=== PATIENT | female | born 1985 | race Caucasian/White ===

== ENCOUNTER 2021-03-05 02:09 | Emergency (ER) | payer OTHER ==
[2021-03-05 02:42] LABS: BASOPHILS % (AUTO) 0.4 %; EOSINOPHILS # (AUTO) 0.1 10^3/uL (0.0-0.7); EOSINOPHILS % (AUTO) 0.7 %; HCT - HEMATOCRIT 39.6 % (37.0-47.0); HGB - HEMOGLOBIN 13.8 g/dL (12.0-16.0); LYMPHOCYTES # (AUTO) 2.9 10^3/uL (1.5-3.5); LYMPHOCYTES % (AUTO) 31.4 %; MEAN CORPUSCULAR HEMOGLOBIN 32.1 pg (27.0-31.0); MEAN CORPUSCULAR HGB CONC 34.8 g/dL (32.0-36.0); MEAN CORPUSCULAR VOLUME 92.1 fL (81.0-99.0); MEAN PLATELET VOLUME 9.6 fL (7.9-10.8); MONOCYTES # (AUTO) 0.7 10^3/uL (0.0-1.0); MONOCYTES % (AUTO) 7.3 %; NEUTROPHILS # (AUTO) 5.5 10^3/uL (1.5-6.6); PLT - PLATELET COUNT 210 10^3/uL (130-450); RED CELL DISTRIBUTION WIDTH 11.9 % (12.0-15.0); WHITE BLOOD COUNT 9.1 x10^3/uL (4.8-10.8)
[2021-03-05 02:42] LABS: BILIRUBIN,URINE NEGATIVE (NEGATIVE); GLUCOSE, URINE (UA) NEGATIVE (NEGATIVE); KETONES,URINE (UA) NEGATIVE (NEGATIVE); LEUKOCYTE ESTERASE, URINE NEGATIVE (NEGATIVE); NITRITE,URINE NEGATIVE (NEGATIVE); OCCULT BLOOD,URINE NEGATIVE (NEGATIVE); PROTEIN,URINE NEGATIVE (NEGATIVE); UROBILINOGEN,URINE 0.2 (NORMAL) E.U./dL (NORMAL)
[2021-03-05 02:43] LABS: CLARITY,URINE CLEAR (CLEAR)
[2021-03-05 02:56] LABS: ALBUMIN 4.2 g/dL (3.2-5.5); ALBUMIN/GLOBULIN RATIO 1.7 (1.0-2.2); BILIRUBIN,TOTAL 0.8 mg/dL (0.2-1.0); CALCIUM 9.4 mg/dL (8.5-10.3); CREATININE 0.5 mg/dL (0.4-1.0); POTASSIUM 3.5 mmol/L (3.5-5.0); TOTAL PROTEIN 6.7 g/dL (6.7-8.2)
--- NOTE | 2021-03-05 03:14 | ED Physician Documentation ---
History of Present Illness - Stated complaint Stated Complaint: LOW ABD PX, CHILLS - Chief complaint Chief Complaint: Abd Pain - History obtained from History obtained from: Patient - Additonal information Additional information: Patient comes to the emergency department chief complaint of intermittent, episodic pelvic cramping that started about 2 weeks ago. Patient states it starts in her suprapubic area and spreads to both sides of her pelvis. Patient is nearly 6 weeks and has not yet had any care, though she does have an OB that she plans to see in her home town of [place]. Patient states that she has not had any vaginal bleeding, but will have comes on suddenly and lasts about 20 to 30 minutes. Patient states that sometimes it so bad that it makes her vomit. She denies nausea in between. Patient states that the episodes seem a bit more frequent now and that she had one 10:00 yesterday morning when it 1400 in the afternoon and then another 1 just prior to arrival here. Patient states in between she is not having pain. She denies dysuria or hematuria. No frequency. No vaginal discharge or bleeding. She states that she was taking iron pills even before her and that she does not think she is constipated, as her stools have not changed. Patient was seen at the emergency department in [place] 2 days ago, where she had laboratory studi es, urinalysis, and an OB ultrasound, all of which were unremarkable. She states that the ultrasound showed intrauterine that is viable. Patient was started on Metamucil and told she probably had some degree of constipation. Patient states that she and her are on a road trip, and will be heading back home in a couple of days. She denies fevers or chills. No back pain. No other complaints at this time. Review of Systems Ten Systems: 10 systems reviewed and negative Constitutional: reports: Reviewed and negative Eyes: reports: Reviewed and negative Ears: reports: Reviewed and negative Nose: reports: Reviewed and negative Throat: reports: Reviewed and negative Cardiac: reports: Reviewed and negative Respiratory: reports: Reviewed and negative GI: reports: Vomiting. denies: Nausea : reports: Now EGA, Other (Pelvic pain). denies: Vaginal bleeding Skin: reports: Reviewed and negative Musculoskeletal: reports: Reviewed and negative Neurologic: reports: Reviewed and negative Psychiatric: reports: Reviewed and negative Endocrine: reports: Reviewed and negative Immunocompromised: reports: Reviewed and negative PD PAST MEDICAL HISTORY - Past Medical History Past Medical History: Yes Psych: Depression, Anxiety - Past Surgical History Past Surgical History: Yes - Present Medications Home Medications: Ambulatory Orders Medication Instructions Recorded Confirmed Citalopram [CeleXA] 10 mg PO DAILY 03/05/21 03/05/21 - Allergies Allergies/Adverse Reactions: Allergies Allergy/AdvReac Type Severity Reaction Status Date / Time No Known Drug Allergies Allergy Verified 03/05/21 02:20 - Social History Does the pt smoke?: No Smoking Status: Never smoker Does the pt drink ETOH?: Yes Does the pt have substance abuse?: No - Immunizations Immunizations are current?: Yes - POLST Patient has POLST: No PD ED PE NORMAL - Vitals Vital signs reviewed: Yes - General General: Alert and oriented X 3, No acute distress, Well developed/nourished - HEENT HEENT: Atraumatic, PERRL, EOMI, Moist mucous membranes - Neck Neck: Supple, no meningeal sign - Cardiac Cardiac: RRR, No murmur, Strong equal pulses - Respiratory Respiratory: No respiratory distress, Clear bilaterally - Abdomen Abdomen: Soft, Non tender, Non distended - Back Back: No CVA TTP - Derm Derm: Normal color, Warm and dry, No rash - Extremities Extremities: No deformity, No edema, No calf tenderness / cord - Neuro Neuro: Alert and oriented X 3, 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, Normal speech - Psych Psych: Normal mood, Normal affect Results - Vitals Vitals: Vital Signs - 24 hr 03/05/21 03/05/21 02:15 03:20 Temperature 36.5 C 36.9 C Heart Rate 83 87 Respiratory 16 14 Rate Blood Pressure 121/84 H 120/72 O2 Saturation 100 98 Oxygen O2 Source Room air - Labs Labs: Laboratory Tests 03/05/21 03/05/21 03/05/21 02:29 02:37 02:37 WBC 9.1 RBC 4.30 Hgb 13.8 Hct 39.6 MCV 92.1 MCH 32.1 H MCHC 34.8 RDW 11.9 L Plt Count 210 MPV 9.6 Neut # (Auto) 5.5 Lymph # (Auto) 2.9 [place] # (Auto) 0.7 Eos # (Auto) 0.1 Baso # (Auto) 0.0 Absolute Nucleated RBC 0.00 Nucleated RBC % 0.0 Sodium 136 Potassium 3.5 Chloride 101 Carbon Dioxide 24 Anion Gap 11.0 BUN 7 Creatinine 0.5 Estimated GFR (MDRD) 140 Glucose 107 H Calcium 9.4 Total Bilirubin 0.8 AST 17 ALT 15 Alkaline Phosphatase 38 L Total Protein 6.7 Albumin 4.2 Globulin 2.5 Albumin/Globulin Ratio 1.7 Lipase 30 Urine Color YELLOW Urine Clarity CLEAR Urine pH 7.0 Ur Specific [place] 1.010 Urine Protein NEGATIVE Urine Glucose (UA) NEGATIVE Urine Ketones NEGATIVE Urine Occult Blood NEGATIVE Urine Nitrite NEGATIVE Urine Bilirubin NEGATIVE Urine Urobilinogen 0.2 (NORMAL) Ur Leukocyte Esterase NEGATIVE Ur Microscopic Review NOT INDICATED Urine Culture Comments NOT INDICATED PD MEDICAL DECISION MAKING - ED course Complexity details: reviewed results, re-evaluated patient, considered differential, d/w patient ED course: Patient had just had a full work-up on her previous emergency department visit 2 days ago, and I did not feel that a repeat ultrasound was indicated. I discussed with the patient that her labs and urinalysis which have been done here look good, and I am not sure what is causing her pelvic cramping. This seems to be very much and intermittent, episodic picture, with hours elapsed in between episodes. The pain is centrally located and spreads equally to both sides, making the likelihood of kidney stone or appendicitis lower. I have discussed with the patient that she should follow-up with her [employer] when she gets back home. We have discussed symptomatic management and the usual indications for return. Departure - Departure Disposition: 01 Home, Self Care Clinical Impression: Pelvic pain affecting in first trimester, antepartum Condition: Stable Instructions: Preg 1st Trimester Coping, ED Pelvic Pain [facility] Comments: Your labs and urinalysis look good. It is not clear what is causing your pain at this time. Please continue to take the medications you were given by the previous emergency department. If your pain continues when you return home, please make an appointment to follow-up in OB for further evaluation. Discharge Date/Time: 03/05/21 03:25
[2021-03-05 03:26] VITALS: BP 120/72
== END 2021-03-05 03:25 | disposition home or self-care (01) ==
LOC: ED 02:09
DX: O99.891 Other specified diseases and conditions complicating pregnancy (principal); R10.2 Pelvic and perineal pain; Z3A.00 Weeks of gestation of pregnancy not specified
CPT/HCPCS: 36415; 80053; 81001; 81003; 83690; 85025; 87086; 99283; 99284